=== PATIENT | female | born 1960 | race Caucasian/White ===

== ENCOUNTER 2024-04-10 00:38 | Inpatient (IN) | payer MEDICAID ==
[~2024-04-10] VITALS: Ht 152.4 cm; Wt 52.7 kg
[2024-04-10 00:44] VITALS: BP_SYST 165; PULSE 79; RESP 18; TEMP 98.6; O2SAT 98
[2024-04-10] MEDS: ASPIRIN 325 MG TABLET PO ONE (01:58)
[2024-04-10 02:12] LABS: BASOPHILS # (AUTO) 0.1 K/uL (0.0-0.2); BASOPHILS % (AUTO) 0.6 % (0.0-2.0); EOSINOPHILS # (AUTO) 0.1 K/uL (0.0-0.4); EOSINOPHILS % (AUTO) 0.8 % (0.0-4.0); HEMATOCRIT 41.5 % (36-48); LYMPHOCYTES # (AUTO) 3.4 K/uL (1.0-5.5); LYMPHOCYTES % (AUTO) 37.6 % (20.5-51.5); MEAN CORPUSCULAR HEMOGLOBIN 28 pg (27-31); MEAN CORPUSCULAR HGB CONC 34 % (32-36); MEAN CORPUSCULAR VOLUME 84 fL (79.0-98.0); MONOCYTES # (AUTO) 0.6 K/uL (0.0-1.0); MONOCYTES % (AUTO) 6.3 % (1.7-9.3); NEUTROPHILS % (AUTO) 54.7 % (40.0-70.0); PLATELET COUNT (AUTO) 219 K/uL (130-430); RED BLOOD CELL COUNT(AUTO) 4.95 MIL/uL (4.2-6.2); RED CELL DISTRIBUTION WIDTH 13.3 % (9.0-15.0); WHITE BLOOD COUNT (AUTO) 9.1 K/uL (4.8-10.8)
[2024-04-10 02:26] LABS: CALCIUM 9.9 mg/dL (8.4-11.0); CREATININE 0.65 mg/dL (0.55-1.30); INR 0.9 (0.8-1.2); POTASSIUM 3.5 mmol/L (3.5-5.1); PROTHROMBIN TIME 9.5 SECS (9.5-12.5)
[2024-04-10] MEDS ORDERED: iohexoL 350 mgI/mL, 100 ML INFUS..BTL IV ONE (02:38)
[2024-04-10] MEDS ORDERED: METF-833 PO (05:40)
[2024-04-10] MEDS ORDERED: AMLO-349 PO (05:40)
[2024-04-10] MEDS: NACL 0.9% 1,000 ML IV SCH (05:45)
[2024-04-10 06:50] VITALS: BP_SYST 145; PULSE 63; RESP 20; TEMP 96.2; O2SAT 96
[2024-04-10 07:51] LABS: ALBUMIN 3.9 g/dL (3.4-4.8); CALCIUM 9.2 mg/dL (8.4-11.0); CREATININE 0.51 mg/dL (0.55-1.30); POTASSIUM 3.5 mmol/L (3.5-5.1); TOTAL BILIRUBIN 0.4 mg/dL (0.0-1.0); TOTAL PROTEIN, SERUM 7.7 g/dL (6.4-8.3)
[2024-04-10 07:53] LABS: BASOPHILS % (AUTO) 0.6 % (0.0-2.0); EOSINOPHILS % (AUTO) 0.6 % (0.0-4.0); HEMATOCRIT 40.8 % (36-48); HEMOGLOBIN 13.7 g/dL (12.0-16.0); LYMPHOCYTES # (AUTO) 3.2 K/uL (1.0-5.5); LYMPHOCYTES % (AUTO) 41.1 % (20.5-51.5); MEAN CORPUSCULAR HEMOGLOBIN 28 pg (27-31); MEAN CORPUSCULAR HGB CONC 34 % (32-36); MEAN CORPUSCULAR VOLUME 83 fL (79.0-98.0); MONOCYTES # (AUTO) 0.5 K/uL (0.0-1.0); MONOCYTES % (AUTO) 5.9 % (1.7-9.3); NEUTROPHILS # (AUTO) 4.1 K/uL (1.8-7.7); NEUTROPHILS % (AUTO) 51.8 % (40.0-70.0); PLATELET COUNT (AUTO) 211 K/uL (130-430); RED BLOOD CELL COUNT(AUTO) 4.92 MIL/uL (4.2-6.2); RED CELL DISTRIBUTION WIDTH 13.4 % (9.0-15.0); WHITE BLOOD COUNT (AUTO) 7.9 K/uL (4.8-10.8)
[2024-04-10 09:05] VITALS: BP_SYST 146; PULSE 63; RESP 18; TEMP 98.2; O2SAT 96
[2024-04-10] MEDS ORDERED: DEXTROSE 50%-WATER 50 ML DISP.SYRIN IVP PRN (10:45)
[2024-04-10] MEDS: ASPIRIN 81 MG TAB.CHEW PO ONE (11:42)
[2024-04-10] MEDS: ATORVASTATIN 20 MG TABLET PO ONE (11:43)
[2024-04-10] MEDS: INSULIN REGULAR, HUMAN 100 UNITS/ML, 3 ML VIAL (humuLIN R) SUBCUT PRN (11:46)
[2024-04-10 12:00] VITALS: BP_SYST 146; PULSE 63; RESP 16; TEMP 98.7; O2SAT 96
[2024-04-10] MEDS ORDERED: hydrALAZINE HCL 20 MG/ML VIAL IVP PRN (13:00)
[2024-04-10 16:00] VITALS: BP_SYST 136; PULSE 67; RESP 17; TEMP 98.4; O2SAT 95
[2024-04-10 20:00] VITALS: BP_SYST 126; PULSE 68; RESP 16; TEMP 97.7; O2SAT 96
[2024-04-11 00:02] VITALS: BP_SYST 120; PULSE 67; RESP 17; TEMP 98.2; O2SAT 95
[2024-04-11 08:00] VITALS: O2SAT 95
[2024-04-11] MEDS: ATORVASTATIN 20 MG TABLET PO SCH (08:34)
[2024-04-11] MEDS: ASPIRIN 81 MG TAB.CHEW PO SCH (08:34)
[2024-04-11 08:42] VITALS: BP_SYST 141; PULSE 62; RESP 16; TEMP 97.7; O2SAT 95
[2024-04-11 11:09] VITALS: BP_SYST 102; PULSE 62; RESP 16; TEMP 96.4; O2SAT 100
[2024-04-11 11:36] LABS: CHOLESTEROL 151 mg/dL (<200); HDL CHOLESTEROL 62 mg/dL (>55); TRIGLYCERIDES 132 mg/dL (30-150)
[2024-04-11] MEDS ORDERED: ATOR40TA68 PO (13:52)
[2024-04-11] MEDS ORDERED: METF-379 PO (13:52)
[2024-04-11] MEDS ORDERED: LOSA-413 PO (13:52)
[2024-04-11] MEDS ORDERED: ASPI-1155 PO (13:52)
[2024-04-11] MEDS ORDERED: GLIP5TAB26 PO (13:52)
[2024-04-11 14:28] VITALS: BP_SYST 102; PULSE 62; RESP 16; TEMP 97.7; O2SAT 95
== END 2024-04-11 15:00 | disposition home or self-care (01) | DRG 45 ==
LOC: SED 00:38 → STU 05:04 → SMU 15:19 → STU 19:00
PROVIDERS: ADMIT Student in an Organized Health Care Education/Training Program; ATTEND Student in an Organized Health Care Education/Training Program
DX: I63.81 Other cerebral infarction due to occlusion or stenosis of small artery (principal); G81.94 Hemiplegia, unspecified affecting left nondominant side; E11.9 Type 2 diabetes mellitus without complications; I10 Essential (primary) hypertension; Z79.899 Other long term (current) drug therapy; Z88.8 Allergy status to other drugs, medicaments and biological substances
CPT/HCPCS: 36415; 70450-TC; 70496; 70498; 70551; 72125-TC; 80048; 80053; 80061; 82948; 83037; 85025; 85610; 85730; 92610-GN; 93005; 97116-GP; 97530-GP; 99291; G0378; J1815; J7030; Q9967